=== PATIENT | female | born 1980 | race American Indian/Alaskan Native ===

== ENCOUNTER 2016-07-26 13:39 | Emergency (ER) | payer OTHER ==
[~2016-07-26] VITALS: Ht 167.6 cm; Wt 104.3 kg
[~2016-07-26 13:39] MED LIST: ALPR1TAB2 PO; BUPR100T6 PO; BYSTOLIC2.5 MG PO; CITA20TA9 PO; DIAZ5TAB PO; DILT60TA3 PO; GABA-585 PO; HYDR-2666 PO; INSU100V8 SQ; METF10002 PO; METF750T PO; MORP30TA PO; OLME20TA PO; PROAIR HFA8.5 GM IH; TRAM50TA PO
[2016-07-26] MEDS ORDERED: HYDROMORPHONE 2 MG/ML VIAL. IM ONE (14:15)
[2016-07-26] MEDS ORDERED: CYCLOBENZAPRINE 10 MG TABLET. PO ONE (14:15)
[2016-07-26 15:52] VITALS: BP 102/68
[2016-07-26] MEDS ORDERED: OXYC-323 PO (16:12)
[2016-07-26] MEDS ORDERED: CYCL5TAB PO (16:12)
--- NOTE | 2016-07-26 16:12 | PHYS DOC ---
Past Medical History Past Medical History: Anxiety, Asthma, Depression, Diabetes-Type II, Hypertension, Stroke Additional Past Medical Histor: SVT, PCOS, OCD, InTERCRANIAL HTN, CHIARI MALFORMATION, MRSA,MENINGITIS Past Surgical History: Cholecystectomy, , Tonsillectomy Additional Past Surgical Histo: Septoplasty, Cyto surgery, Cardiac Ablation Alcohol Use: Rarely Drug Use: None Adult General Chief Complaint Chief Complaint: Neck Pain HPI HPI 35-year-old female presenting to the emergency department today with chronic neck pain. The patient rate and out of her medications for her pain. She has a complicated medical history including status post Chiari malformation surgery which was complicated by MRSA meningitis status post treatment including PICC line placement and half-way antibiotics. She recently saw her spinal surgeon on Friday which was 5 days ago having the exact same neck pain she comes today for who cleared her from his perspective. She recently had an MRI prior to that visit. She unfortunately ran out of her medications and is currently in between doctors. She has an appointment with a primary care doctor on Friday the [facility]. She also has a neurology appointment over the next week. Onset more than 2 weeks. Duration constant. Worse with movement of the neck. Alleviated with muscle relaxers. Review of systems is negative for chest pain shortness of breath abdominal pain nausea or vomiting. All other review of systems is negative unless otherwise noted in history of present illness. Review of Systems Review of Systems SEE ABOVE. Current Medications Current Medications Current Medications Medications (Trade) Dose Ordered Sig/Rubin Start Time Stop Time Status Last Admin Dose Admin Cyclobenzaprine HCl (Flexeril) 10 mg 1X ONCE 07/26/16 14:15 07/26/16 14:25 DC 07/26/16 14:20 10 MG Hydromorphone HCl (Dilaudid) 1 mg 1X ONCE 07/26/16 14:15 07/26/16 14:25 DC 07/26/16 14:20 1 MG Allergies Allergies Allergies Coded Allergies Type Severity Reaction Last Updated Verified Cephalexin Monohydrate Allergy Intermediate Hives, Rash, Swelling 06/02/15 Yes Penicillins Allergy Intermediate Hives, Rash, Swelling 06/02/15 Yes Sulfa (Sulfonamide Antibiotics) Allergy Intermediate Hives, Rash, Swelling Yes acetazolamide Allergy Intermediate Hives, Rash, Swelling 06/02/15 Yes Physical Exam Physical Exam Constitutional: Well developed, well nourished, no acute distress, non-toxic appearance. Patient is well-appearing. HENT: Normocephalic, atraumatic, bilateral external ears normal, oropharynx moist, no oral exudates, nose normal. [] Eyes: PERRLA, EOMI, conjunctiva normal, no discharge. Neck: no tenderness, supple, no stridor. Patient is able to move her neck to the left and the right with mild pain. Most of her pain is in the trapezius region bilaterally. Cardiovascular:Heart rate regular rhythm, no murmur [] Lungs & Thorax: Bilateral breath sounds clear to auscultation Abdomen: Bowel sounds normal, soft, no tenderness, no masses, no pulsatile masses. [] Skin: Warm, dry, no erythema, no rash. Back: No tenderness, no CVA tenderness. [] Extremities: No tenderness, no cyanosis, no clubbing, ROM intact, no edema. Neurologic: Alert and oriented X 3, normal motor function, normal sensory function, no focal deficits noted. [] Psychologic: Affect normal, judgement normal, mood normal. Current Patient Data Vital Signs Vital Signs Date Time Temp Pulse Resp B/P Pulse Ox O2 Delivery O2 Flow Rate FiO2 07/26/16 15:52 111 16 102/68 99 Room Air 07/26/16 13:55 98.4 98.4 EKG EKG [] Radiology/Procedures Radiology/Procedures [] Course & Med Decision Making Course & Med Decision Making Pertinent Labs and Imaging studies reviewed. (See chart for details) [] 85-year-old female presenting to the emergency department with neck pain. Patient has a very significant complicated medical history however her pain specifically has been very chronic in nature. The patient has a spinal surgeon who is following patient's resolution of meningitis. The patient has been treated with IV antibiotics. Her pain is not dynamic. She reports her pain being the same today as when she was seen by her spinal surgeon on Friday and when she had the MRI previously. She is mainly here for medication refill. On clinical examination the patient is mildly tachycardic likely secondary to pain. The patient does not want further evaluation for possible meningitis which given her clinical presentation and story seems reasonable. She is provided with intramuscular pain medications and muscle relaxants and discharged home with pain medications until Friday where she can establish with her primary care physician. Juani Disclaimer Dragon Disclaimer This electronic medical record was generated, in whole or in part, using a voice recognition dictation system. Departure Departure Impression: Primary Impression: Neck pain Disposition: 01 HOME, SELF-CARE Condition: STABLE Referrals: DEANNA MCGREGOR MD (PCP) Additional Instructions: Thank you for allowing us to participate in your care today. Followup with your primary care physician in 3 days if your symptoms do not improve. If you do not have a primary care provider you can ask for a list of our primary care providers. Return to the emergency department you have any new or concerning findings. This should be evaluated by the primary care physician and any necessary consulting services for continued management within a few days after discharge. Return to emergency room if you have any new or concerning symptoms including but not limited to fever, chills, nausea, vomiting, intractable pain, any new rashes, chest pain, shortness of air, uncontrolled bleeding, difficulty breathing, and/or vision loss. You may have been prescribed medication that can change in your level of thinking and ability to operate machinery. These medications include hydrocodone and Ativan. Also, Benadryl has been known to do this as well. Be sure to check with your pharmacist and ask if the medications you've prescribed can affect your level of consciousness. I recommend not operating heavy machinery or driving while on medication such as these. Scripts Cyclobenzaprine Hcl 5 Mg Tablet1 Tab PO TID #10 TAB Prov:AILYN FOY MD 07/26/16 Oxycodone/Apap 5-325 (Percocet 5-325 Mg Tablet)1 Each Tablet1 Tab PO TID #10 TAB Prov:AILYN FOY MD 07/26/16 AILYN FOY MD Jul 26, 2016 16:12
== END 2016-07-26 16:22 | disposition home or self-care (01) ==
LOC: ER 13:39
DX: M54.2 Cervicalgia (principal); G89.29 Other chronic pain; R00.0 Tachycardia, unspecified; F41.9 Anxiety disorder, unspecified; J45.909 Unspecified asthma, uncomplicated; F32.9 Major depressive disorder, single episode, unspecified; E11.9 Type 2 diabetes mellitus without complications; I10 Essential (primary) hypertension; E28.2 Polycystic ovarian syndrome; F42.9 Obsessive-compulsive disorder, unspecified; I47.1 Supraventricular tachycardia; G93.5 Compression of brain; Z88.0 Allergy status to penicillin; Z88.2 Allergy status to sulfonamides; Z88.8 Allergy status to other drugs, medicaments and biological substances; Z88.1 Allergy status to other antibiotic agents; Z79.2 Long term (current) use of antibiotics; Z86.73 Personal history of transient ischemic attack (TIA), and cerebral infarction without residual deficits
CPT/HCPCS: 96372; 99283; J1170

== ENCOUNTER 2016-11-11 22:11 | Emergency (ER) | payer OTHER ==
[~2016-11-11] VITALS: Ht 167.6 cm; Wt 99.8 kg
[~2016-11-11 22:11] MED LIST changes: +CYCL5TAB PO; -HYDR-2666 PO; +HYDR-2758 PO; +METF-620 PO; -METF10002 PO; -OLME20TA PO; +OLME20TA19 PO; +OXYC-323 PO
[2016-11-11] MEDS ORDERED: HYDROcodone/APAP 5/325MG 1 TAB TABLET PO ONE (23:30)
[2016-11-11] MEDS ORDERED: CYCLOBENZAPRINE 10 MG TABLET. PO ONE (23:30)
--- NOTE | 2016-11-12 00:40 | PHYS DOC ---
Past Medical History Past Medical History: Anxiety, Asthma, Depression, Diabetes-Type II, Hypertension, Stroke Additional Past Medical Histor: SVT, PCOS, OCD, InTERCRANIAL HTN, CHIARI MALFORMATION, MRSA,MENINGITIS Past Surgical History: Cholecystectomy, , Tonsillectomy Additional Past Surgical Histo: Septoplasty, Cyto surgery, Cardiac Ablation, BRAIN, NECK Alcohol Use: Rarely Drug Use: None Adult General Chief Complaint Chief Complaint: Neck Pain HPI HPI 36-year-old female presenting to the emergency department with neck pain. She reports her pain started yesterday. She describes it as a muscle spasm. It is nonradiating intermittent and without alleviating factors. She is use ice packs and ibuprofen for pain control which is mildly alleviated the pain. No exacerbating factors. Review of systems is negative for fevers chills vision changes numbness weakness or tingling. She denies dysuria polyuria fecal or urinary incontinence. All other review of systems is negative unless otherwise noted in history of present illness. ED course: 36-year-old female presenting with neck pain. Afebrile with increased heart rate likely secondary to pain. Pertinent physical exam findings showed 2+ deep tendon reflexes. Normal neurologic exam. Nontender midline neck. Patient has range of motion of the neck. Negative Brudzinski sign. Negative Kernig sign. I had a long discussion with the patient because of her past medical history of doing further diagnostic testing. She reports her symptoms are not similar to her previous diagnosises. She reports that this neck pain occurs quite frequently and she feels that she started her ibuprofen and ice packs to light. She previously to having surgery for her Chiari malformation had these pains as well. She has been able to titrate off of opioids which she is proud of. She was given oral pain medications in the emergency department which improved her symptoms and was subsequently discharged home. The patient was then discharged home in stable condition to follow up with their primary care physician over the next 2-3 days. They were to return if their symptoms worsened or if they were concerned for any reason. [id number] discharge instructions and return precautions were given. Patient's questions were answered to their satisfaction. Patient is comfortable plan. Review of Systems Review of Systems SEE ABOVE. Current Medications Current Medications Current Medications Medications (Trade) Dose Ordered Sig/Rubin Start Time Stop Time Status Last Admin Dose Admin Acetaminophen/ Hydrocodone Bitart (Lortab 5/325) 2 tab 1X ONCE 11/11/16 23:30 11/11/16 23:31 DC 11/11/16 23:17 2 TAB Cyclobenzaprine HCl (Flexeril) 10 mg 1X ONCE 11/11/16 23:30 11/11/16 23:31 DC 11/11/16 23:17 10 MG Ondansetron HCl (Zofran Odt) 4 mg 1X ONCE 11/12/16 01:00 11/12/16 01:01 11/12/16 00:26 4 MG Allergies Allergies Allergies Coded Allergies Type Severity Reaction Last Updated Verified Cephalexin Monohydrate Allergy Intermediate Hives, Rash, Swelling 06/02/15 Yes Penicillins Allergy Intermediate Hives, Rash, Swelling 06/02/15 Yes Sulfa (Sulfonamide Antibiotics) Allergy Intermediate Hives, Rash, Swelling Yes acetazolamide Allergy Intermediate Hives, Rash, Swelling 06/02/15 Yes Physical Exam Physical Exam Constitutional: Well developed, well nourished, no acute distress, non-toxic appearance. HENT: Normocephalic, atraumatic, bilateral external ears normal, oropharynx moist, no oral exudates, nose normal. [] Eyes: PERRLA, EOMI, conjunctiva normal, no discharge. [] Neck: Normal range of motion, no tenderness, supple, no stridor. [] Cardiovascular:Heart rate regular rhythm, no murmur [] Lungs & Thorax: Bilateral breath sounds clear to auscultation Abdomen: Bowel sounds normal, soft, no tenderness, no masses, no pulsatile masses. [] Skin: Warm, dry, no erythema, no rash. [] Back: No tenderness, no CVA tenderness. [] Extremities: No tenderness, no cyanosis, no clubbing, ROM intact, no edema. Neurologic: Mental status: Awake oriented and alert x3 Cranial nerves: Extraocular movements intact, eyebrows mara bilaterally smile symmetric, uvula elevation, shoulder shrug intact, tongue protrusion normal DTRs: 2+ Sensation: equal and normal in all extremities Strength: 5/5 in upper and lower extremities bilaterally Psychologic: Affect normal, judgement normal, mood normal. [] Current Patient Data Vital Signs Vital Signs Date Time Temp Pulse Resp B/P (MAP) Pulse Ox O2 Delivery O2 Flow Rate FiO2 11/11/16 23:17 18 Room Air 11/11/16 22:36 98.1 113 151/90 (110) 95 98.1 EKG EKG [] Radiology/Procedures Radiology/Procedures [] Course & Med Decision Making Course & Med Decision Making Pertinent Labs and Imaging studies reviewed. (See chart for details) [] Dragon Disclaimer Dragon Disclaimer This electronic medical record was generated, in whole or in part, using a voice recognition dictation system. Departure Departure Impression: Primary Impression: Neck pain Disposition: HOME, SELF-CARE Condition: STABLE Referrals: DEANNA MCGREGOR MD (PCP) Patient Instructions: Back Pain, Adult Additional Instructions: Thank you for allowing us to participate in your care today. 1. Follow-up with your neurosurgeon and call him in the morning and tell him about her neck pain. 2. Call your neurologist and follow-up with your neck pain. 3. Follow-up with your primary care physician in 2-3 days Followup with your primary care physician in 3 days if your symptoms do not improve. Call your Primary Doctor tomorrow and inform them of your visit today. If you do not have a primary care provider you can ask for a list of our primary care providers. Return to the emergency department you have any new or concerning findings. This should be evaluated by the primary care physician and any necessary consulting services for continued management within a few days after discharge. Return to emergency room if you have any new or concerning symptoms including but not limited to fever, chills, nausea, vomiting, intractable pain, any new rashes, chest pain, shortness of air, uncontrolled bleeding, difficulty breathing, and/or vision loss. You may have been prescribed medication that can change in your level of thinking and ability to operate machinery. These medications include hydrocodone and Ativan. Also, Benadryl has been known to do this as well. Be sure to check with your pharmacist and ask if the medications you've prescribed can affect your level of consciousness. I recommend not operating heavy machinery or driving while on medication such as these. AILYN FOY MD Nov 12, 2016 00:40
[2016-11-12] MEDS ORDERED: MORP15TA PO (00:41)
[2016-11-12] MEDS ORDERED: ONDANSETRON ODT 4 MG TAB.RAPDIS. PO ONE (01:00)
[2016-11-12 01:07] VITALS: BP 130/77
== END 2016-11-12 01:37 | disposition home or self-care (01) ==
LOC: ER 22:11
DX: M54.2 Cervicalgia (principal); M62.838 Other muscle spasm; F41.9 Anxiety disorder, unspecified; J45.909 Unspecified asthma, uncomplicated; F32.9 Major depressive disorder, single episode, unspecified; E11.9 Type 2 diabetes mellitus without complications; I10 Essential (primary) hypertension; I47.1 Supraventricular tachycardia; E28.2 Polycystic ovarian syndrome; F42.9 Obsessive-compulsive disorder, unspecified; G93.5 Compression of brain; Z88.0 Allergy status to penicillin; Z86.73 Personal history of transient ischemic attack (TIA), and cerebral infarction without residual deficits; Z90.49 Acquired absence of other specified parts of digestive tract; Z88.2 Allergy status to sulfonamides; Z88.8 Allergy status to other drugs, medicaments and biological substances; Z88.1 Allergy status to other antibiotic agents
CPT/HCPCS: 99284; Q0162

== ENCOUNTER 2017-01-09 19:28 | Emergency (ER) | payer OTHER ==
[~2017-01-09] VITALS: Ht 167.6 cm; Wt 99.8 kg
[~2017-01-09 19:28] MED LIST changes: +MORP15TA PO
[2017-01-09 19:44] VITALS: BP 154/90
[2017-01-09] MEDS ORDERED: LEVO500T59 PO (20:03)
--- NOTE | 2017-01-09 20:03 | PHYS DOC ---
Past Medical History Past Medical History: Anxiety, Asthma, Depression, Diabetes-Type II, Hypertension, Stroke Additional Past Medical Histor: SVT, PCOS, OCD, InTERCRANIAL HTN, CHIARI MALFORMATION, MRSA,MENINGITIS Past Surgical History: Cholecystectomy, , Tonsillectomy Additional Past Surgical Histo: Septoplasty, Cyto surgery, Cardiac Ablation, BRAIN, NECK Alcohol Use: None Drug Use: None Adult General Chief Complaint Chief Complaint: SORE THROAT HPI HPI Patient is a 36 year old female with history of hypertension, diabetes, anxiety , who presents today complaining of a sinus infection that began yesterday. Patient states she's had nasal congestion bilateral ear pain and sore throat with it. She states she is prone to sinus infections because she has had sinus surgery. Patient denies any fever. She states she normally gets Levaquin. Review of Systems Review of Systems Constitutional: See history of present illness Eyes: Denies change in visual acuity, redness, or eye pain [] HENT: bilateral ear pain nasal congestion and sore throat [] Respiratory: Denies cough or shortness of breath [] Cardiovascular: No additional information not addressed in HPI [] GI: Denies abdominal pain, nausea, vomiting, bloody stools or diarrhea [] : Denies dysuria or hematuria [] Musculoskeletal: Denies back pain or joint pain [] Integument: Denies rash or skin lesions [] Neurologic: Denies headache, focal weakness or sensory changes [] Endocrine: Denies polyuria or polydipsia [] Allergies Allergies Allergies Coded Allergies Type Severity Reaction Last Updated Verified Cephalexin Monohydrate Allergy Intermediate Hives, Rash, Swelling 06/02/15 Yes Penicillins Allergy Intermediate Hives, Rash, Swelling 06/02/15 Yes Sulfa (Sulfonamide Antibiotics) Allergy Intermediate Hives, Rash, Swelling Yes acetazolamide Allergy Intermediate Hives, Rash, Swelling 06/02/15 Yes Physical Exam Physical Exam Constitutional: Well developed, well nourished, no acute distress, non-toxic appearance. [] HENT: Normocephalic, atraumatic, bilateral external ears normal, oropharynx moist, no oral exudates, nose normal. [] Bilateral nasal turbinates are erythematous and boggy. Mild frontal sinus tenderness. Eyes: PERRLA, EOMI, conjunctiva normal, no discharge. [] Neck: Normal range of motion, no tenderness, supple, no stridor. [] Cardiovascular:Heart rate regular rhythm, no murmur [] Lungs & Thorax: Bilateral breath sounds clear to auscultation [] Abdomen: Bowel sounds normal, soft, no tenderness, no masses, no pulsatile masses. [] Skin: Warm, dry, no erythema, no rash. [] Back: No tenderness, no CVA tenderness. [] Extremities: No tenderness, no cyanosis, no clubbing, ROM intact, no edema. [] Neurologic: Alert and oriented X 3, normal motor function, normal sensory function, no focal deficits noted. [] Psychologic: Affect normal, judgement normal, mood normal. [] Current Patient Data Vital Signs Vital Signs Date Time Temp Pulse Resp B/P (MAP) Pulse Ox O2 Delivery O2 Flow Rate FiO2 01/09/17 19:44 98.5 123 20 95 Room Air 98.5 EKG EKG [] Radiology/Procedures Radiology/Procedures [] Course & Med Decision Making Course & Med Decision Making Pertinent Labs and Imaging studies reviewed. (See chart for details) Patient has a sinus infection pharyngitis and otalgia. She normally gets Levaquin, prescription was given to her. Talked to her about the risk of tendon rapture from taking Levaquin. Provided return precautions and discharged in stable condition. Dragon Disclaimer Dragon Disclaimer This electronic medical record was generated, in whole or in part, using a voice recognition dictation system. Departure Departure Impression: Primary Impression: Acute sinusitis Additional Impressions: Otalgia of both ears Pharyngitis, acute Disposition: 01 HOME, SELF-CARE Condition: STABLE Referrals: DEANNA MCGREGOR MD (PCP) follow up with your doctor in one week Patient Instructions: Otalgia, Sinusitis, Viral and Bacterial Pharyngitis Additional Instructions: You were seen for acute sinusitis, pharyngitis, and ear pain. Please complete your antibiotics. Take Tylenol/Motrin for pain or fever. Follow-up with your doctor in 1-2 weeks. 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
== END 2017-01-09 20:07 | disposition home or self-care (01) ==
LOC: ER 19:28
DX: J01.90 Acute sinusitis, unspecified (principal); H92.03 Otalgia, bilateral; J02.9 Acute pharyngitis, unspecified; E11.9 Type 2 diabetes mellitus without complications; F32.9 Major depressive disorder, single episode, unspecified; E28.2 Polycystic ovarian syndrome; I10 Essential (primary) hypertension; F42.9 Obsessive-compulsive disorder, unspecified; J45.909 Unspecified asthma, uncomplicated; Z86.73 Personal history of transient ischemic attack (TIA), and cerebral infarction without residual deficits; Z90.89 Acquired absence of other organs; Z98.890 Other specified postprocedural states; Z88.0 Allergy status to penicillin; Z88.1 Allergy status to other antibiotic agents; Z88.2 Allergy status to sulfonamides; Z88.8 Allergy status to other drugs, medicaments and biological substances
CPT/HCPCS: 99283

== ENCOUNTER 2017-04-20 21:09 | Emergency (ER) | payer OTHER ==
[~2017-04-20] VITALS: Ht 167.6 cm; Wt 106.6 kg
[~2017-04-20 21:09] MED LIST changes: +LEVO500T59 PO
[2017-04-20 21:25] VITALS: BP 178/96
[2017-04-20] MEDS ORDERED: OXYC-328 PO (21:53)
--- NOTE | 2017-04-20 21:54 | PHYS DOC ---
Past Medical History Past Medical History: Anxiety, Asthma, Depression, Diabetes-Type II, Hypertension, Stroke Additional Past Medical Histor: SVT, PCOS, OCD, InTERCRANIAL HTN, CHIARI MALFORMATION, MRSA,MENINGITIS Past Surgical History: Cholecystectomy, , Tonsillectomy Additional Past Surgical Histo: Septoplasty, Cyto surgery, Cardiac Ablation, BRAIN, NECK Alcohol Use: None Drug Use: None Adult General Chief Complaint Chief Complaint: OTHER COMPLAINTS HPI HPI Patient is a 36 year old female who drove herself to the emergency department with the complaint of neck pain for 2 days. Patient states she has a history of surgery about a year ago for repair of Chiari malformation. She had problems with neck pain before the surgery and continues to have some exacerbations of neck pain. Sometime last week she was putting up decorations with her sister and thinks she might have strained her neck looking up. She didn't start having neck pain for a few days though, it began yesterday. Her pain has continued yesterday and continues today. Nothing makes it better. She has taken her methocarbamol as prescribed. She has tried ice. The pain is described as severe. She states "this is the same pain that I deal with all the time". Patient states she recently got a new primary care doctor, and about 2 or 3 weeks ago he prescribed 20 oxycodone for her. She has arty gone through them and is currently out of opiate pain medication. She has tried other pain relief modalities in the past without success. She currently does not have a neurologist because her surgery has been completed and she sees her primary care doctor now. Review of Systems Review of Systems Constitutional: Denies fever or chills [] Musculoskeletal: Denies back pain or pain other than the neck Allergies Allergies Allergies Coded Allergies Type Severity Reaction Last Updated Verified Cephalexin Monohydrate Allergy Intermediate Hives, Rash, Swelling 06/02/15 Yes Penicillins Allergy Intermediate Hives, Rash, Swelling 06/02/15 Yes Sulfa (Sulfonamide Antibiotics) Allergy Intermediate Hives, Rash, Swelling Yes acetazolamide Allergy Intermediate Hives, Rash, Swelling 06/02/15 Yes Physical Exam Physical Exam Constitutional: Well developed, well nourished, no acute distress, non-toxic appearance. Patient is holding the back of her neck, seems to have neck pain when she moves or sits up, but she is able to sit up unassisted for evaluation. Warm and dry. HENT: Normocephalic, atraumatic, bilateral external ears normal, nose normal. [ ] Eyes: conjunctiva normal, no discharge. [] Neck: Posterior aspect has a healed midline incision consistent with history. There is no swelling, deformity, overlying skin color change, or other abnormality seen. She does not have cervical muscle spasm detected. The generalized area is moderately tender to palpation. Cardiovascular:Heart rate regular rhythm, no murmur [] Lungs & Thorax: Bilateral breath sounds clear to auscultation [] Skin: Warm, dry, no erythema, no rash. [] Extremities: No tenderness, no cyanosis, no clubbing, ROM intact, no edema. [] Neurologic: Alert and oriented X 3, normal motor function, no focal deficits noted. [] Current Patient Data Vital Signs Vital Signs Date Time Temp Pulse Resp B/P (MAP) Pulse Ox O2 Delivery O2 Flow Rate FiO2 04/20/17 21:25 98.0 98 16 178/96 (123) 97 Room Air 98.0 EKG EKG [] Radiology/Procedures Radiology/Procedures [] Course & Med Decision Making Course & Med Decision Making Pertinent Labs and Imaging studies reviewed. (See chart for details) 36-year-old female with a history of chronic neck pain secondary to Chiari malformation and surgery from that, presents with 2 days of severe neck pain. She drove herself to the ED. She already has muscle relaxers at home. I we'll write her for a few opiate pain relievers but cautioned her that she needs to get future prescriptions from her primary care doctor. Advised her to discuss with him whether physical therapy, pain management, or other modalities might be useful. [] Dragon Disclaimer Dragon Disclaimer This electronic medical record was generated, in whole or in part, using a voice recognition dictation system. Departure Departure Impression: Primary Impression: Neck pain Additional Impression: Chronic neck pain Disposition: 01 HOME, SELF-CARE Condition: STABLE Referrals: UNKNOWN PCP NAME (PCP) Patient Instructions: Chronic Pain Management-Brief Additional Instructions: Talk to your doctor about how you should manage flareups of your neck pain. Since it has been bothering him more than usual lately, your doctor may want to refer you to physical therapy, pain management, or some other specialist to help. No driving while taking the prescribed pain medicine. It is an opiate and can be sedating and constipating. It will be addictive. Take sparingly. Scripts Oxycodone/Apap 10-325 (PERCOCET 10-325 MG TABLET) 1 Each Tablet 1 TAB PO Q4-6HRS Y for neck pain, #8 TAB Prov: KENNETH DANG MD 04/20/17 Problem Qualifiers KENNETH DANG MD Apr 20, 2017 21:53
== END 2017-04-20 21:55 | disposition home or self-care (01) ==
LOC: ER 21:09
DX: M54.2 Cervicalgia (principal); G89.29 Other chronic pain; J45.909 Unspecified asthma, uncomplicated; F41.9 Anxiety disorder, unspecified; F32.9 Major depressive disorder, single episode, unspecified; E11.9 Type 2 diabetes mellitus without complications; I10 Essential (primary) hypertension; I47.1 Supraventricular tachycardia; E28.2 Polycystic ovarian syndrome; F42.9 Obsessive-compulsive disorder, unspecified; Z88.2 Allergy status to sulfonamides; Z88.0 Allergy status to penicillin; Z90.49 Acquired absence of other specified parts of digestive tract; Z88.1 Allergy status to other antibiotic agents; Z88.8 Allergy status to other drugs, medicaments and biological substances; Z86.73 Personal history of transient ischemic attack (TIA), and cerebral infarction without residual deficits
CPT/HCPCS: 99283

== ENCOUNTER 2021-03-15 14:41 | Emergency (ER) | payer BC, OTHER ==
[~2021-03-15] VITALS: Ht 167.6 cm; Wt 86.3 kg
[~2021-03-15 14:41] MED LIST changes: +ALBU2.5V8 IH; -HYDR-2758 PO; +HYDR-2761 PO; -METF-620 PO; +METF10007 PO; +OLME20TA17 PO; -OLME20TA19 PO; -OXYC-323 PO; +OXYC1TAB15 PO; +OXYC1TAB22 PO; -PROAIR HFA8.5 GM IH
[2021-03-15 15:51] VITALS: BP 131/58
--- NOTE | 2021-03-15 16:41 | RAD ---
CT HEAD AND C-SPINE WO Date: 03/15/2021 4:07 PM Clinical Indication: fall pain Comparison: None. Technique: 5 mm axial tomographic images were obtained of the head without contrast. These were view ed on brain and bone windows. CT imaging of the cervical spine was performed without contrast. Coron al and sagittal reformatted images were performed. One or more of the following dose reduction techni ques were utilized: Automated exposure control (AEC), Adjustment of mA and/or kV according to patient size, Use of iterative reconstruction technique such as ASiR, CT scan done according to ALARA and im age gently/image wisely HEAD FINDINGS: The brain parenchyma is normal in attenuation. No intra- or extra-axial mass or fluid collection. No acute hemorrhage. The ventricles are normal in size, shape, and morphology. The pastrana-white matter luis ction is normal. The basilar cisterns are patent. The visualized paranasal sinuses are normal. The visualized portions of the orbits and globes are no rmal. The mastoid air cells are clear. Postsurgical changes of suboccipital decompression. CERVICAL SPINE FINDINGS: Reversal of the cervical lordosis. No acute fracture. C1 posterior arch resection. The intervertebral disc heights are maintained. No high-grade spinal canal stenosis or neural foramin al narrowing. The thyroid gland is normal. No cervical lymphadenopathy. The visualized aerodigestive tract is unrem arkable. The visualized lung apices are clear. IMPRESSION: 1. No acute intracranial process. 2. No acute osseous abnormality of the cervical spine. Electronically signed by: Dima Siddiqi MD (03/15/2021 4:39 PM) [facility]
--- NOTE | 2021-03-15 16:49 | RAD ---
CT LUMBAR SPINE WO Date: 03/15/2021 4:07 PM Indication: Reason: fall pain / Spl. Instructions: / History: Comparison: None. Technique: Helical CT images of the lumbar spine were obtained without contrast. Coronal and sagitta l reformatted images were also performed. One or more of the following dose reduction techniques were utilized: Automated exposure control (AEC), Adjustment of mA and/or kV according to patient size, Us e of iterative reconstruction technique such as ASiR, CT scan done according to ALARA and image gentl y/image wisely. Findings: The lumbar spine is normally aligned. No acute fracture. Vertebral body heights are maintained withou t compression deformity. The intervertebral disc spaces are normal. No aggressive lytic or blastic os seous lesion. No high grade spinal canal stenosis or neuroforaminal narrowing. No soft tissue abnormality within the visualized abdomen or pelvis. The visualized abdominal aorta is normal caliber. IMPRESSION: No acute osseous abnormality of the lumbar spine. Electronically signed by: Dima Siddiqi MD (03/15/2021 4:46 PM) [facility]
--- NOTE | 2021-03-15 17:25 | PHYS DOC ---
Past Medical History Past Medical History: Anxiety, Asthma, Depression, Diabetes-Type II, Hype rtension, Stroke Additional Past Medical Histor: SVT, PCOS, OCD, InTERCRANIAL HTN, CHIARI MALFORMATION, MRSA,MENINGITIS (UNIQUE MORALES HAT BAND ATTACHER) Past Surgical History: Cholecystectomy, , Tonsillectomy Additional Past Surgical Histo: Septoplasty, Cyto surgery, Cardiac Ablation, BRAIN, NECK,LUNG CA WITH CHEMO (UNIQUE MORALES HAT [employer] ATT[employer]ER) Smoking Status: Never Smoker Alcohol Use: None Drug Use: None (UNIQUE MORALES H[employer] ATTACHER) General Adult EDM: Chief Complaint: LOWER BACK PAIN OR INJURY HPI: HPI: Patient is a 40 year old female with history of diabetes type 2, hypertension, high cholesterol, SVTs, Chiari malformation, cardiac ablation, PCOS, intrac ranial hypertension, sarcoma and, currently on chemotherapy last treatment three weeks ago, chronic dizziness with frequent falls, she states today she stood up in her kitchen and fell. She is complaining of mild intermittent coccyx pain worse on sitting on her buttocks, she also reports she hit her head on the ground. Denies any loss of consciousness. Denies any nausea or vomiting. Denies any pain radiating to bilateral lower extremities. She states she was able to take her oxycodone which relieved most of the pain. (UNIQUE MORALES HAT B[employer] ATTACHER) Review of Systems: Review of Systems: Constitutional: Denies fever or chills. [] Eyes: Denies change in visual acuity. [] HENT: Denies nasal congestion or sore throat. [] Respiratory: Denies cough or shortness of breath. [] Cardiovascular: Denies chest pain or edema. [] GI: Denies abdominal pain, nausea, vomiting, bloody stools or diarrhea. [] : Denies dysuria. [] Musculoskeletal: Reports coccyx pain. Denies back pain or joint pain. [] Integument: Denies rash. [] Neurologic: Reports hitting her head on the ground. Denies headache, focal weakness or sensory changes. [] Psychiatric: Denies depression or anxiety. [] (UNIQUE MORALES H[employer] ATT[employer]ER) Heart Score: C/O Chest Pain: N/A Risk Factors: Risk Factors: DM, Current or recent (<one month) smoker, HTN, HLP, family history of CAD, obesity. Risk Scores: Score 0 - 3: 2.5% MACE over next 6 weeks - Discharge Home Score 4 - 6: 20.3% MACE over next 6 weeks - Admit for Clinical Observation Score 7 - 10: 72.7% MACE over next 6 weeks - Early Invasive Strategies (UNIQUE MORALES HAT B[employer] ATT[employer]ER) Allergies: Allergies: Allergies Coded Allergies Type Severity Reaction Last Updated Verified Cephalexin Monohydrate Allergy Intermediate Hives, Rash, Swelling 06/02/15 Yes Penicillins Allergy Intermediate Hives, Rash, Swelling 06/02/15 Yes Sulfa (Sulfonamide Antibiotics) Allergy Intermediate Hives, Rash, Swelling 06/02/15 Yes acetazolamide Allergy Intermediate Hives, Rash, Swelling 06/02/15 Yes (UNIQUE MORALSE HAT BAND ATTACHER) Physical Exam: PE: Constitutional: Well developed, well nourished, no acute distress, non-toxic appearance. [] HENT: Normocephalic, atraumatic, bilateral external ears normal, oropharynx moist, no oral exudates, nose normal. [] Eyes: PERRLA, EOMI, conjunctiva normal, no discharge. [] Neck: Old healed surgical incision noted posterior midline cervical spine normal range of motion, no tenderness, supple, no stridor. [] Cardiovascular: Tachycardic-chronic SVT Lungs & Thorax: Bilateral breath sounds clear to auscultation [] Abdomen: Bowel sounds normal, soft, no tenderness, no masses, no pulsatile masses. [] Skin: Warm, dry, no erythema, no rash. [] Back: Mild coccyx tenderness, no CVA tenderness. [] Extremities: No tenderness, no cyanosis, no clubbing, ROM intact, no edema. [] Neurologic: Alert and oriented X 3, normal motor function, normal sensory function, no focal deficits noted. Cranial nerves II through XII 12 intact Psychologic: Affect normal, judgement normal, mood normal. [] (UNIQUE MORALES H[employer] ATT[employer]ER) Current Patient Data: Vital Signs: Vital Signs Date Time Temp Pulse Resp B/P (MAP) Pulse Ox O2 Delivery O2 Flow Rate FiO2 03/15/21 15:51 98.0 139 22 131/58 (82) 98 Room Air 98.0 (UNIQUE MORLAES HAT [employer] ATT[employer]ER) EKG: EKG: [] (UNIQUE MORALES HAT [employer] ATTACHER) Radiology/Procedures: Radiology/Procedures: []PROCEDURE: CT LUMBAR SPINE WO CONTRAST CT LUMBAR SPINE WO Date: 03/15/2021 4:07 PM Indication: Reason: fall pain / Spl. Instructions: / History: Comparison: None. Technique: Helical CT images of the lumbar spine were obtained without contrast. Coronal and sagittal reformatted images were also performed. One or more of the following dose reduction techniques were utilized: Automated exposure control (AEC), Adjustment of mA and/or kV according to patient size, Use of iterative reconstruction technique such as ASiR, CT scan done according to ALARA and image gently/image wisely. Findings: The lumbar spine is normally aligned. No acute fracture. Vertebral body heights are maintained without compression deformity. The intervertebral disc spaces are normal. No aggressive lytic or blastic osseous lesion. No high grade spinal canal stenosis or neuroforaminal narrowing. No soft tissue abnormality within the visualized abdomen or pelvis. The visualized abdominal aorta is normal caliber. IMPRESSION: No acute osseous abnormality of the lumbar spine. Electronically signed by: Angel Siddiqi MD (03/15/2021 4:46 PM) [facility] DICTATED and SIGNED BY: ANGEL SIDDIQI MD DATE: 03/15/21 [id number] PROCEDURE: CT HEAD AND CERVICAL SPINE WO CT HEAD AND C-SPINE WO Date: 03/15/2021 4:07 PM Clinical Indication: fall pain Comparison: None. Technique: 5 mm axial tomographic images were obtained of the head without c ontrast. These were viewed on brain and bone windows. CT imaging of the cervical spine was performed without contrast. Coronal and sagittal reformatted images were performed. One or more of the following dose reduction techniques were utilized: Automated exposure control (AEC), Adjustment of mA and/or kV according to patient size, Use of iterative reconstruction technique such as ASiR, CT scan done according to ALARA and image gently/image wisely HEAD FINDINGS: The brain parenchyma is normal in attenuation. No intra- or extra-axial mass or fluid collection. No acute hemorrhage. The ventricles are normal in size, shape, and morphology. The pastrana-white matter junction is normal. The basilar cisterns are patent. The visualized paranasal sinuses are normal. The visualized portions of the orbits and globes are normal. The mastoid air cells are clear. Postsurgical changes of suboccipital decompression. CERVICAL SPINE FINDINGS: Reversal of the cervical lordosis. No acute fracture. C1 posterior arch resection. The intervertebral disc heights are maintained. No high-grade spinal canal stenosis or neural foraminal narrowing. The thyroid gland is normal. No cervical lymphadenopathy. The visualized aerodigestive tract is unremarkable. The visualized lung apices are clear. IMPRESSION: 1. No acute intracranial process. 2. No acute osseous abnormality of the cervical spine. Electronically signed by: Angel Siddiqi MD (03/15/2021 4:39 PM) [facility] DICTATED and SIGNED BY: ANGEL SIDDIQI MD DATE: 03/15/21 [id number] (UNIQUE MORALES H[employer] ATTACHER) Course & Med Decision Making: Course & Med Decision Making Pertinent Labs and Imaging studies reviewed. (See chart for details) This is a 40-year-old female patient with multiple medical problems including chronic dizziness of multiple falls presented today to be evaluated for coccyx pain after falling. Patient reports hitting her head on the ground. No loss of consciousness. Refusing work-up. Requesting CTs. CT of the head, cervical spine and lumbar spine are negative for any acute findings. Her heart rate was in the 130s upon arrival, she states she has history of chronic SVTs and that is her normal heart rate. Discharge to home, follow-up with PCP. (UNIQUE MORALES H[employer] B[employer] ATTACHER) Course & Med Decision Making I was the Attending physician on the above date of service of this patient. This patient was evaluated, examined, treated, and dispositioned from the emergency department by the mid-level practitioner. Although I was working at the time , no assistance was requested. Electronically signed, Daria Bardales DO (DARIA BARDALES DO) Juani Disclaimer: Juani Disclaimer: This electronic medical record was generated, in whole or in part, using a voice recognition dictation system. (UNIQUE MORALES H[employer] B[employer] ATTACHER) Departure Departure Impression: Primary Impression: Dizziness Additional Impressions: Fall Qualified Codes: W19.XXXA - Unspecified fall, initial encounter CHI (closed head injury) Qualified Codes: S09.90XA - Unspecified injury of head, initial encounter Lumbar contusion Qualified Codes: S30.0XXA - Contusion of lower back and pelvis, initial encounter Disposition: HOME / SELF CARE / HOMELESS Condition: STABLE Referrals: UNKNOWN PCP NAME (PCP) follow up with your doctor next week Patient Instructions: Contusion, [id number], Dizziness, Head Injury, Adult, [id number] Additional Instructions: You were evaluated in the emergency room, your CT of the head, cervical spine and lumbar spine are negative for any acute findings, please follow-up with your own doctor in 1 week. Continue taking oxycodone as needed for pain. Come back to the ED at any point symptoms worsen. UNIQUE MORALES APRN Mar 15, 2021 17:25 DARIA BARDALES DO Mar 16, 2021 16:21
== END 2021-03-15 17:38 | disposition home or self-care (01) ==
LOC: ER 14:41
DX: S30.0XXA Contusion of lower back and pelvis, initial encounter (principal); S09.90XA Unspecified injury of head, initial encounter; R42 Dizziness and giddiness; F41.9 Anxiety disorder, unspecified; J45.909 Unspecified asthma, uncomplicated; F32.9 Major depressive disorder, single episode, unspecified; E11.9 Type 2 diabetes mellitus without complications; I10 Essential (primary) hypertension; E78.00 Pure hypercholesterolemia, unspecified; Z86.73 Personal history of transient ischemic attack (TIA), and cerebral infarction without residual deficits; Z90.49 Acquired absence of other specified parts of digestive tract; Z98.890 Other specified postprocedural states; Z88.1 Allergy status to other antibiotic agents; Z88.0 Allergy status to penicillin; Z88.2 Allergy status to sulfonamides; Z88.8 Allergy status to other drugs, medicaments and biological substances; W18.39XA Other fall on same level, initial encounter; Y93.89 Activity, other specified; Y92.090 Kitchen in other non-institutional residence as the place of occurrence of the external cause; Y99.8 Other external cause status
CPT/HCPCS: 70450; 72125; 72131; 99285-25